=== PATIENT | female | born 1985 | race Caucasian/White ===

== ENCOUNTER → 2017-02-25 | Outpatient (REF) | payer OTHER | LOC: M LAB REF 08:13 | PROVIDERS: ATTEND Physician Assistant | DX: R30.0 Dysuria (principal) ==

== ENCOUNTER 2019-01-04 16:30 | Emergency (ER) | payer OTHER ==
[~2019-01-04] VITALS: Ht 160 cm; Wt 55.5 kg
[2019-01-04 17:11] LABS: BASO # 0.1 10^3/uL (0.0-0.2); BASO % 0.6 % (0.0-1.0); EOS # 0.4 10^3/uL (0.0-0.50); HEMATOCRIT 30.6 % (36.0-47.0); HEMOGLOBIN 9.5 g/dl (12.0-15.5); LYMPH # 3.4 10^3/uL (1.5-4.5); LYMPH % 35.6 % (24.0-44.0); MEAN CORPUSCULAR HEMOGLOBIN 19.4 pg (27.0-33.0); MEAN CORPUSCULAR VOLUME 62.4 fl (80.0-96.0); MONO # 0.8 10^3/uL (0.0-0.8); MONO % 8.7 % (0.0-5.0); NEUTROPHILS # 4.8 10^3/uL (1.8-7.7); NEUTROPHILS % 50.8 % (36.0-66.0); PLATELET COUNT, AUTOMATED 225 10^3/uL (150-450); WHITE BLOOD COUNT 9.4 10^3/uL (4.0-10.0)
[2019-01-04 17:53] LABS: APPEARANCE, URINE CLEAR (CLEAR); BACTERIA, URINE AUTO NEGATIVE (NEGATIVE); BILIRUBIN, URINE AUTO NEGATIVE (NEGATIVE); BLOOD, URINE BLOOD 2+ (NEGATIVE); COLOR, URINE YELLOW (YELLOW); GLUCOSE, URINE (UA) AUTO NEGATIVE (NEGATIVE); KETONE, URINE AUTO NEGATIVE (NEGATIVE); LEUKOCYTE ESTERASE, URINE AUTO NEGATIVE (NEGATIVE); MUCUS, URINE SMALL (NEGATIVE); NITRITE, URINE AUTO NEGATIVE (NEGATIVE); PROTEIN, URINE AUTO NEGATIVE (NEGATIVE); RBC, URINE AUTO 142 /HPF (0-3); SPECIFIC GRAVITY URINE AUTO 1.027 (1.002-1.035); SQUAMOUS EPITHELIAL CELL UR AU 0 /HPF (0-6); WBC, URINE AUTO 1 /HPF (0-3)
[2019-01-04 18:10] LABS: BLOOD UREA NITROGEN 17 MG/DL (7-18); CALCIUM LEVEL 8.7 MG/DL (8.5-10.1); CARBON DIOXIDE LEVEL 27 MEQ/L (21-32); CHLORIDE LEVEL 106 MEQ/L (98-107); CREATININE FOR GFR 0.83 MG/DL (0.55-1.30); GLOMERULAR FILTRATION RATE > 60.0 (>60); GLUCOSE, FASTING 112 MG/DL (70-100); HCG, SERUM QUANTITATIVE 350 MIU/ML; POTASSIUM SERUM 3.9 MEQ/L (3.5-5.1); SODIUM LEVEL 141 MEQ/L (136-145)
--- NOTE | 2019-01-04 18:47 | REP ---
Clinical: with vaginal bleeding. Technique: Transabdominal and transvaginal first trimester obstetrical ultrasound with color Doppler evaluation. Findings: Heterogeneous anteverted uterus measures 8.7 x 3.7 x 5.5 cm. Endometrial complex measures 7.1 mm thickness and without decidual reaction or intrauterine . The bilateral ovaries are normal in appearance and vascularity without torsion. Right ovary measures 4.1 x 2.3 x 2.3 cm; RI 0.61. Left ovary measures 4.2 x 1.7 x 2.2 cm and includes 2.3 cm cyst possibly corpus luteum; RI 0.70. No pelvic fluid or adnexal mass lesion. Impression: Heterogeneous anteverted uterus without decidual reaction or intrauterine . Correlation with serial HCG levels and follow-up examination may be warranted. Differential diagnosis includes early , missed , and less likely ectopic . Electronically Signed by Eugenio Hughes MD 01/04/2019 06:38 P
[2019-01-04] MEDS ORDERED: RHOGAM 300 MCG (1500 IU) INJ (J2790) IM ONE (19:00)
[2019-01-04 20:14] VITALS: BP 115/61
== END 2019-01-04 20:33 | disposition home or self-care (01) ==
LOC: M ED 16:30
DX: O20.0 Threatened abortion (principal); Z3A.00 Weeks of gestation of pregnancy not specified; Z91.048 Other nonmedicinal substance allergy status; Z88.8 Allergy status to other drugs, medicaments and biological substances
CPT/HCPCS: 76801; 76817; 80048; 81001; 84702; 85025; 86850; 86901; 87086; 93976; 96372; 99283; J2790

== ENCOUNTER → 2019-01-07 | Outpatient (CLI) | payer OTHER | LOC: M LAB 08:35 | PROVIDERS: ATTEND Advanced Practice Midwife | DX: N93.8 Other specified abnormal uterine and vaginal bleeding (principal) ==

== ENCOUNTER → 2019-01-22 | Outpatient (CLI) | payer OTHER | LOC: M LAB 15:34 | PROVIDERS: ATTEND Advanced Practice Midwife | DX: O02.1 Missed abortion (principal) ==

== ENCOUNTER → 2019-01-22 | Outpatient (REF) | payer OTHER ==
[2019-01-29 14:08] LABS: HPV HYBRID CAPTURE II Positive (Negative)
== END ==
LOC: M LAB REF 17:39
PROVIDERS: ATTEND Advanced Practice Midwife
DX: R87.612 Low grade squamous intraepithelial lesion on cytologic smear of cervix (LGSIL) (principal)
CPT/HCPCS: 87624; G0123

== ENCOUNTER → 2019-04-02 | Outpatient (CLI) | payer OTHER ==
[2019-04-02 17:25] LABS: BASO # 0.1 10^3/uL (0.0-0.2); BASO % 0.5 % (0.0-1.0); EOS # 0.3 10^3/uL (0.0-0.50); EOS % 2.3 % (0.0-3.0); HEMATOCRIT 31.1 % (36.0-47.0); HEMOGLOBIN 9.8 g/dl (12.0-15.5); LYMPH # 2.6 10^3/uL (1.5-4.5); LYMPH % 23.1 % (24.0-44.0); MEAN CORPUSCULAR HEMOGLOBIN 19.6 pg (27.0-33.0); MEAN CORPUSCULAR HGB CONC 31.5 g/dl (32.0-36.5); MEAN CORPUSCULAR VOLUME 62.2 fl (80.0-96.0); MONO # 1.1 10^3/uL (0.0-0.8); MONO % 9.6 % (0.0-5.0); NEUTROPHILS # 7.2 10^3/uL (1.8-7.7); NEUTROPHILS % 63.9 % (36.0-66.0); PLATELET COUNT, AUTOMATED 206 10^3/uL (150-450); WHITE BLOOD COUNT 11.3 10^3/uL (4.0-10.0)
[2019-04-03 10:06] LABS: HEPATITIS C VIRUS ABY INDEX < 0.0 INDEX (<0.8); HIV 1&2 SCREEN CENTAUR NEGATIVE (NEGATIVE); RUBELLA IgG QUALITATIVE IMMUNE (IMMUNE)
[2019-04-03 13:05] LABS: CHLAMYDIA DNA AMPLIFICATION NEGATIVE (NEGATIVE); GC DNA AMPLIFICATION NEGATIVE (NEGATIVE)
== END ==
LOC: M SMT 14:08
PROVIDERS: ATTEND Advanced Practice Midwife
DX: Z34.81 Encounter for supervision of other normal pregnancy, first trimester (principal); Z3A.00 Weeks of gestation of pregnancy not specified

== ENCOUNTER → 2019-05-23 | Outpatient (REF) | payer OTHER | LOC: M LAB REF 14:05 | PROVIDERS: ATTEND Physician Assistant | DX: R30.0 Dysuria (principal) ==

== ENCOUNTER → 2019-06-12 | Outpatient (CLI) | payer BC ==
--- NOTE | 2019-06-13 10:30 | REP ---
Clinical: Anatomical evaluation. Comparison: None. Findings: Examination demonstrates a single live intrauterine in breech presentation. motion is identified by technologist. Placenta is noted anterior and low-lying and grade zero without evidence for placenta previa or abruption. Amniotic fluid volume is normal. Cervix measures 6.2 cm in length and appears closed. No evidence for nuchal cord. Gestational age by LMP 18 weeks 4 days with KVNG 11/09/2019 . Gestational age by current measurements 18 weeks 1 day with KVNG 11/12/2019 . FHR equals 154 beats per minute. BPD 4.1 cm 18 weeks 3 days HC 15.3 cm 18 weeks 2 days AC 12.5 cm 18 weeks 1 day FL 2.6 cm 18 weeks 0 days HL 2.6 cm 18 weeks 1 day HC/AC ratio 1.22 Estimated weight 223 grams ( 28th percentile). Anatomical assessment demonstrates normal structures including cranium, cavum, cerebellum/posterior fossa, facial features, lungs, diaphragm, stomach, cord insertion/three-vessel cord, kidneys/bladder, and upper extremities. Small bilateral choroid plexus cyst noted. Limited evaluation of the heart/ventricular outflow tracts, spine and lower extremities. Impression: 1. Single live intrauterine in breech presentation demonstrating appropriate interval growth. 2. Low-lying placenta 14 mm from the closed internal os warrants followup. 3. Limited anatomical assessment. Electronically Signed by Eugenio Hughes MD 06/13/2019 10:21 A
== END ==
LOC: M RAD 15:50
PROVIDERS: ATTEND Advanced Practice Midwife
DX: Z34.81 Encounter for supervision of other normal pregnancy, first trimester (principal)

== ENCOUNTER → 2019-06-25 | Outpatient (REF) | payer BC | LOC: M LAB REF 16:56 | PROVIDERS: ATTEND Advanced Practice Midwife | DX: Z34.81 Encounter for supervision of other normal pregnancy, first trimester (principal) ==

== ENCOUNTER → 2019-07-08 | Outpatient (CLI) | payer BC ==
--- NOTE | 2019-07-08 18:23 | REP ---
OB ULTRASOUND: Real-time sonographic evaluation of the gravid uterus is performed utilizing transabdominal and endovaginal technique. There is a single living intrauterine gestation. The estimated gestational age is 22 weeks 2 days, EDC 11/09/2019. Today's measurements indicate appropriate growth. BPD 53 mm = 22 weeks 0 days, at the 41st percentile. HC 186 mm = 21 weeks 0 days, at the 10th percentile. AC 171 mm = 22 weeks 1 day, at the 45th percentile. Femur length 40 mm = 22 weeks 5 days, at the 60th percentile. HC/AC ratio 1.09 within normal range. Estimated weight 485 grams at the 42nd percentile. Cervix is closed and measures 3.9 cm in length. heart rate 141 beats per minute. SEEN/GROSSLY UNREMARKABLE Lateral ventricles Yes Posterior fossa Yes Upper lip Yes Four-chamber heart Yes LVOT Yes RVOT Yes Stomach Yes Cord insertion Yes Three vessel cord Yes Kidneys Yes Bladder Yes Spine Yes position: Variable. Placenta: Anterior and grade 0 with no previa or abruption. Amniotic fluid: Within normal limits. Electronically Signed by Christiano Acharya MD 07/09/2019 11:59 A
== END ==
LOC: M RAD 15:56
PROVIDERS: ATTEND Advanced Practice Midwife
DX: Z34.81 Encounter for supervision of other normal pregnancy, first trimester (principal)

== ENCOUNTER → 2019-08-19 | Outpatient (CLI) | payer BC ==
[2019-08-19 14:47] LABS: HEMATOCRIT 29.4 % (36.0-47.0); HEMOGLOBIN 8.9 g/dl (12.0-15.5); MEAN CORPUSCULAR HEMOGLOBIN 20.1 pg (27.0-33.0); MEAN CORPUSCULAR HGB CONC 30.3 g/dl (32.0-36.5); MEAN CORPUSCULAR VOLUME 66.5 fl (80.0-96.0); PLATELET COUNT, AUTOMATED 208 10^3/uL (150-450); RED BLOOD COUNT 4.42 10^6/uL (4.00-5.40); WHITE BLOOD COUNT 11.4 10^3/uL (4.0-10.0)
== END ==
LOC: M PLALAB 09:34
PROVIDERS: ATTEND Advanced Practice Midwife
DX: Z34.82 Encounter for supervision of other normal pregnancy, second trimester (principal)

== ENCOUNTER → 2019-10-01 | Outpatient (CLI) | payer BC ==
[2019-10-01 12:12] LABS: HEMATOCRIT 30.1 % (36.0-47.0); HEMOGLOBIN 9.1 g/dl (12.0-15.5); MEAN CORPUSCULAR HEMOGLOBIN 19.6 pg (27.0-33.0); MEAN CORPUSCULAR HGB CONC 30.2 g/dl (32.0-36.5); MEAN CORPUSCULAR VOLUME 64.7 fl (80.0-96.0); PLATELET COUNT, AUTOMATED 205 10^3/uL (150-450); RED BLOOD COUNT 4.65 10^6/uL (4.00-5.40); WHITE BLOOD COUNT 10.5 10^3/uL (4.0-10.0)
== END ==
LOC: M PLALAB 09:17
PROVIDERS: ATTEND Advanced Practice Midwife
DX: O99.013 Anemia complicating pregnancy, third trimester (principal); D56.3 Thalassemia minor; Z3A.00 Weeks of gestation of pregnancy not specified

== ENCOUNTER → 2019-10-07 | Outpatient (CLI) | payer BC ==
--- NOTE | 2019-10-07 11:24 | REP ---
OB ULTRASOUND: Real-time sonographic evaluation of the gravid uterus is performed. There is a single intrauterine gestation with an estimated gestational age 35 weeks 2 days, EDC 11/09/2019. Today's measurements indicate appropriate growth. Biometry and Growth: BPD 86 mm = 34 weeks 4 days, 40th percentile. HC 311 mm = 34 weeks 5 days 42nd percentile AC 316 mm = 35 weeks 4 days, 54th percentile FL 67 mm = 34 weeks 4 days, 40th percentile HC/AC ratio 0.98 within normal range. Estimated weight 2597 grams, 45th percentile. SEEN/GROSSLY UNREMARKABLE Lateral ventricles Yes Posterior fossa Yes Upper lip Yes Four-chamber heart Yes LVOT Yes RVOT Yes Stomach Yes Cord insertion Yes Three vessel cord Yes Kidneys Yes Bladder Yes Spine Yes Cervical length: Closed and measures 4.1 cm in length. heart rate: 163 beats per minute. position: Vertex. Placenta: Anterior and grade 1 with no previa or abruption. Amniotic fluid: Within normal limits, MYRANDA 10.6 within normal range of 7.8 to 24.9. S/D ratio 2.32 within the normal range of 2.0 to 3.0. RI: 0.57 below normal range of 0.59 to 0.75. IMPRESSION: Appropriate growth. Electronically Signed by Christiano Acharya MD 10/07/2019 01:28 P
== END ==
LOC: M RAD 10:02
PROVIDERS: ATTEND Advanced Practice Midwife
DX: O26.843 Uterine size-date discrepancy, third trimester (principal)

== ENCOUNTER → 2019-10-11 | Outpatient (REF) | payer BC | LOC: M SFHCWAGY 18:33 | PROVIDERS: ATTEND Advanced Practice Midwife | DX: Z34.93 Encounter for supervision of normal pregnancy, unspecified, third trimester (principal) ==

== ENCOUNTER 2019-11-15 22:27 | Inpatient (IN) | payer BC ==
[~2019-11-15] VITALS: Ht 160 cm; Wt 90.2 kg
[2019-11-15] MEDS ORDERED: LACTATED RINGER'S 1000 ML IV STA (22:48)
--- NOTE | 2019-11-15 23:07 | HPEPDOC ---
Obstetrical History & Physical General Date of Admission November 15, 2019 History of Present Illness Chief Complaint: Contractions, term Information Provided By: Patient Age: 34 : 2 Term: 0 Pre-term: 0 Abortions: 1 Livin Care Care: Good Care Dating Final EDC: Nov 09, 2019 Final EDC by: LMP EGA at Admission: 40 (+6) Antepartum Course Height (inches): 63 Pre- weight (lbs.): 125 Admission Weight (lbs.): 199 Past Medical History Past Obstetrical History : Past Obstetrical History: [employer] History: Spontaneous , Abnormal Pap, Human papillomavirus(HPV), Herpes simplex virus(HSV), Other Past Medical History Medical History Thalassemia minor Surgical History: Other (LEEP, dental, arm) Social History Marital Status: Family situation: Spouse/partner home Psychosocial History: No pertinent psych hx * Smoker: non-smoker Alcohol: Denies Drugs: denies Abuse Violence Screening Have you been hit/kicked/slapp: No Have you been sexually assault: No Imunizations Tdap status: current Influenza Status: current Allergies Coded Allergies: Cat Dander (Verified Allergy, Unknown, 12/11/04) naproxen (Verified Adverse Reaction, Unknown, 01/04/19) gastric burning Medications No Active Prescriptions or Reported Meds Physical Examination Physical Examination GENERAL: Alert and oriented times three. Appears uncomfortable BREAST: . ABDOMEN: Gravid and non-tender to touch. FETUS: Is vertex (VTX) by sterile vaginal examination (SVE), fetus is vertex (VTX) by Curtis. HEART RATE: Regular rate and rhythm. LUNGS: Clear to auscultation (CTA). EXTREMITIES: No edema. No clonus. Deep tendon reflexes (DTRs) + 2. Pertinent Laboratoy Data Blood Type: O- RBC Antibody Screen: Positive (anti d) HIV: Negative Hepatitis B: Negative Hepatitis C: Negative Rapid Plasma Reagin: Nonreactive Rubella: Immune Chlamydia/Gonorrhea: Negative Group B Streptococcus: Negative Quad Screen Test: Declined Glucose Tolerance Test: 94 Anatomy Ultrasound Ultrasound Date: Jun 12, 2019 Placenta Location: Anterior Normal Anatomy: Yes Placenta Previa: No (low lying. TVUS cervix 6.2cm) Estimated Weight (grams): 223 Other Ultrasounds 04/02/19 dating 8wk gestation Steroid Therapy Steroid Therapy: No Vaginal Examination Dilation: 3 cm Effacement: 90% Station: -2 Cervical Consistency: Medium Cervical Position: Middle Presentation: Cephalic presentation Assessment Heart Rate (FHR): 135 Variability: Moderate Accelerations: Positive Decelerations: None Tocometer Contractions: Yes Frequency: regular, every 2-5 min. Duration: greater than 60 seconds Strength: palpated as moderate Assessment/Plan Assessment Daina is a 34-year-old (G)2 para (P)0-0-1-0 at 40+6 weeks by 8-week ultrasound. Presents to Labor and Delivery (L&D) laboring. Reports onset UC 1800, becoming stronger through the evening. Reports light bloody show. Denies LOF. Fetus is active. Plan Admit and orient. Multi [employer] Specialist and consent. Diet: clear. Group B Streptococcus (GBS) negative. Labs and intravenous (IV) per unit protocol. Counseled on Pitocin and induction of labor (IOL). Lactated Ringers (LR): Bolus 500 mL, then at 125 mL/hr. Considering epidural Anticipate normal spontaneous delivery (). C-S as appropriate. Qian Lopez CNM Nov 15, 2019 23:07
[2019-11-15 23:22] LABS: HEMATOCRIT 32.8 % (36.0-47.0); HEMOGLOBIN 9.9 g/dl (12.0-15.5); MEAN CORPUSCULAR HEMOGLOBIN 19.5 pg (27.0-33.0); MEAN CORPUSCULAR HGB CONC 30.2 g/dl (32.0-36.5); MEAN CORPUSCULAR VOLUME 64.6 fl (80.0-96.0); PLATELET COUNT, AUTOMATED 191 10^3/uL (150-450); RED BLOOD COUNT 5.08 10^6/uL (4.00-5.40); WHITE BLOOD COUNT 17.3 10^3/uL (4.0-10.0)
[2019-11-16] VITALS (16 sets, daily range): BP systolic 101–143; BP diastolic 58–77
[2019-11-16] MEDS ORDERED: PRENTAB9 PO
[2019-11-16] MEDS ORDERED: VALT1TAB PO
[2019-11-16] MEDS: LR 1,000 ML IV SCH ×2 (01:31→09:45)
[2019-11-16] MEDS ORDERED: BUTORPHANOL 2 MG/ML INJ (J0595) IV ONE (02:00)
[2019-11-16] MEDS ORDERED: PROMETHAZINE INJ 25 MG/ML VIAL (J2550) IM ONE (02:00)
[2019-11-16] MEDS ORDERED: OXYTOCIN DRIP 30 UNITS in IV 1 EA IV SCH ×2 (03:00→04:00)
[2019-11-16] MEDS ORDERED: OXYTOCIN 30 UNITS IN 0.9% NaCl 500ML IV BAG (J2590) As Ordered ONE (03:01)
--- NOTE | 2019-11-16 04:36 | IPNPDOC ---
Text Note Date of Service The patient was seen on 11/16/19. NOTE Progress Becoming increasingly uncomfortable UC Q 3-5 minutes, difficult to trace due to maternal activity FH 135, minimal variability due to recent stadol. Cat I prior to administration of medication SVE /-2, moderate bloody show Pt considering epidural VS,Fishbone, I+O VS, Fishbone, I+O Laboratory Tests 11/15/19 23:10 Vital Signs Date Time Temp Pulse Resp B/P (MAP) Pulse Ox O2 Delivery O2 Flow Rate FiO2 11/16/19 01:45 16 Qian Lopez CNM Nov 16, 2019 04:36
[2019-11-16] MEDS ORDERED: FENTANYL 2MCG/ML ROPIVACAINE 0.2% IN 0.9% NACL 100ML IVBAG As Ordered ONE (04:44)
[2019-11-16] MEDS ORDERED: REFRIGERATOR IV KEYS XX PRN (05:40)
[2019-11-16] MEDS ORDERED: ONDANSETRON 4MG/2ML VIAL (J2405) IV PRN (05:40)
[2019-11-16] MEDS ORDERED: LACTATED RINGER'S 1000 ML IV PRN (05:40)
[2019-11-16] MEDS ORDERED: diphenhydrAMINE 50MG/ML VIAL (J1200) IV PRN (05:40)
[2019-11-16] MEDS ORDERED: EPIDURAL/PCA KEYS XX PRN (05:40)
[2019-11-16] MEDS ORDERED: ePHEDrine SULFATE 25 MG/5 ML(5MG/ML) SYRINGE IV PRN (05:40)
[2019-11-16] MEDS ORDERED: EPIDURAL COMMENT XX SCH (05:40)
[2019-11-16] MEDS ORDERED: FENTANYL/ROPIVACAINE/NACL BAG 100 ML EPIDURAL SCH (05:40)
[2019-11-16] MEDS ORDERED: NALOXONE INJ 0.4 MG/1 ML VIAL (J2310) IV PRN (05:40)
--- NOTE | 2019-11-16 06:30 | IPNPDOC ---
Text Note Date of Service The patient was seen on 11/16/19. NOTE Progress Comfortable with epidural FH Cat I tracing UC 4-5 minutes x 60 seconds, moderate SVE 5-6/90/-2, BBOW with UC Pitocin started VS,Fishbone, I+O VS, Fishbone, I+O Laboratory Tests 11/15/19 23:10 Vital Signs Date Time Temp Pulse Resp B/P (MAP) Pulse Ox O2 Delivery O2 Flow Rate FiO2 11/16/19 01:45 16 Qian Lopez CNM Nov 16, 2019 06:30
[2019-11-16] MEDS ORDERED: IBUPROFEN 600 MG TAB PO PRN (12:45)
[2019-11-16] MEDS ORDERED: DOCUSATE SODIUM 100 MG CAP PO PRN (12:45)
[2019-11-16] MEDS ORDERED: ACETAMINOPHEN TAB 650MG DOSE (2X325MG) PO PRN (12:45)
[2019-11-16] MEDS ORDERED: RHOGAM 300 MCG (1500 IU) INJ (J2790) IM SCH (12:45)
[2019-11-16] MEDS ORDERED: METHYLERGONOVINE MALEATE 0.2 MG TAB PO PRN (12:45)
[2019-11-16] MEDS ORDERED: IBUPROFEN 800 MG TAB PO PRN (12:45)
[2019-11-16] MEDS ORDERED: DIBUCAINE 1% OINTMENT 30GM TOP PRN (12:45)
[2019-11-16] MEDS ORDERED: MEASLES,MUMPS,RUBELLA VACCINE INJ (MMR-II) (90707) SC SCH (12:45)
--- NOTE | 2019-11-16 12:51 | DN ---
DATE OF DELIVERY: 11/16/2019 PREDELIVERY DIAGNOSIS: 40 and 6/7 weeks gestation, labor. POSTDELIVERY DIAGNOSIS: Delivered. PROCEDURE: Spontaneous vaginal delivery. BANQUET HOUSEPERSON: Dr. Hayden Vera ANESTHESIA: Epidural. ESTIMATED BLOOD LOSS: 300 mL. FINDINGS: 7 pound 7 ounce female infant, scores 9 and 9. DELIVERY SUMMARY: After a 30 minute second stage, the patient spontaneously delivered a 7 pound 7 ounce female , scores 9 and 9 under epidural anesthesia. There was no nuchal cord. The shoulders delivered with ease. The was handed to the mother and cried. Cord was doubly clamped and cut. The placenta delivered spontaneously and appeared to be intact. The patient received intravenous (IV) Pitocin immediately after delivery of the placenta. Second degree perineal laceration was repaired under local anesthesia with #2-0 Vicryl in the usual fashion. Sponge and needle counts were correct.
[2019-11-16] MEDS ORDERED: OXYTOCIN DRIP 30 UNITS in IV 1 EA IV ONE (13:00)
[2019-11-16] MEDS ORDERED: LIDOCAINE 1% MDV 20ML VIAL INFIL ONE (13:00)
[2019-11-16] MEDS: ACETAMINOPHEN 500 MG TAB PO PRN ×2 (13:53→19:45)
[2019-11-16] MEDS ORDERED: SLF 3 ML SYR IV PRN (14:30)
[2019-11-17] MEDS: ACETAMINOPHEN 500 MG TAB PO PRN ×2 (01:50→08:16)
[2019-11-17] MEDS: SLF 3 ML SYR IV SCH ×3 (01:51→05:52)
[2019-11-17 06:12] VITALS: BP 127/60
[2019-11-17] MEDS ORDERED: PRENATAL VITAMINS CHEWABLE TABLET PO SCH (09:00)
[2019-11-17] MEDS ORDERED: IBUP80TA PO (16:08)
[2019-11-17] MEDS ORDERED: ACET-683 PO (16:08)
== END 2019-11-17 16:35 | disposition home or self-care (01) | DRG 560 ==
LOC: M LDO 22:27 → M LDI 22:53 → M OBS 11-16 14:14
PROVIDERS: ADMIT Advanced Practice Midwife; ATTEND Specialist
PROC: 10E0XZZ Delivery of Products of Conception, External Approach (ICD-10-PCS; principal; 2019-11-16)
PROC: 0KQM0ZZ Repair Perineum Muscle, Open Approach (ICD-10-PCS; 2019-11-16)
DX: O48.0 Post-term pregnancy (principal); O70.1 Second degree perineal laceration during delivery; Z3A.40 40 weeks gestation of pregnancy; Z37.0 Single live birth

== ENCOUNTER → 2020-05-26 | Outpatient (REF) | payer BC ==
[~2020-05-26] MED LIST: ACET-683 PO; IBUP80TA PO; PRENTAB9 PO; VALT1TAB PO
[2020-05-26 14:34] LABS: HEMATOCRIT 35.5 % (36.0-47.0); HEMOGLOBIN 10.8 g/dl (12.0-15.5); MEAN CORPUSCULAR HEMOGLOBIN 18.8 pg (27.0-33.0); MEAN CORPUSCULAR HGB CONC 30.4 g/dl (32.0-36.5); MEAN CORPUSCULAR VOLUME 61.7 fl (80.0-96.0); PLATELET COUNT, AUTOMATED 228 10^3/uL (150-450); RED BLOOD COUNT 5.75 10^6/uL (4.00-5.40); WHITE BLOOD COUNT 9.7 10^3/uL (4.0-10.0)
[2020-05-26 15:47] LABS: HEPATITIS C VIRUS ABY INDEX 0.1 INDEX (<0.8); HIV 1&2 SCREEN CENTAUR NEGATIVE (NEGATIVE)
== END ==
LOC: M PLALAB 10:19
PROVIDERS: ATTEND Advanced Practice Midwife
DX: Z34.91 Encounter for supervision of normal pregnancy, unspecified, first trimester (principal); Z12.4 Encounter for screening for malignant neoplasm of cervix

== ENCOUNTER 2020-07-22 14:57 | Day surgery (SDC) | payer BC ==
[~2020-07-22] VITALS: Ht 160 cm; Wt 62.6 kg
[2020-07-22] MEDS ORDERED: ceFAZolin SOD 2 GM in IV 1 EA IV ONE (15:30)
[2020-07-22 15:50] LABS: HEMATOCRIT 31.2 % (36.0-47.0); HEMOGLOBIN 9.5 g/dl (12.0-15.5); MEAN CORPUSCULAR HEMOGLOBIN 19.2 pg (27.0-33.0); MEAN CORPUSCULAR HGB CONC 30.4 g/dl (32.0-36.5); PLATELET COUNT, AUTOMATED 208 10^3/uL (150-450); RED BLOOD COUNT 4.95 10^6/uL (4.00-5.40); WHITE BLOOD COUNT 8.1 10^3/uL (4.0-10.0)
[2020-07-22] MEDS ORDERED: RHOGAM 300 MCG (1500 IU) INJ (J2790) IM ONE ×2 (16:00→18:30)
[2020-07-22] MEDS ORDERED: ROCURONIUM BROMIDE 50 MG/5 ML VIAL As Ordered ONE ×2 (16:39→16:43)
[2020-07-22] MEDS ORDERED: propofoL 200 MG/20 ML VIAL As Ordered ONE (16:39)
[2020-07-22] MEDS ORDERED: LIDOCAINE 2% 100MG/5ML SDV (FOR ANES.) As Ordered ONE (16:39)
[2020-07-22] MEDS ORDERED: fentaNYL 100 MCG/2 ML INJECTION (J3010) As Ordered ONE (16:40)
[2020-07-22] MEDS ORDERED: MIDAZOLAM INJ 2MG/2ML VIAL (J2250 PER 1MG) As Ordered ONE (16:40)
[2020-07-22] MEDS ORDERED: LIDOCAINE 1% SDV 30ML VIAL As Ordered ONE (16:43)
[2020-07-22] MEDS ORDERED: miSOPROStol 200 MCG TAB (S0191) As Ordered ONE (16:43)
[2020-07-22] MEDS ORDERED: METHYLERGONOVINE MALEATE 0.2 MG/ML VIAL (J2210) As Ordered ONE (16:43)
[2020-07-22] MEDS ORDERED: SILVER NITRATE APPLICATOR As Ordered ONE (16:43)
[2020-07-22] MEDS ORDERED: ACETAMINOPHEN 1000MG 100ML IV BTL (OFIRMEV) (J0131 PER 10MG) As Ordered ONE (17:17)
[2020-07-22] MEDS ORDERED: METOCLOPRAMIDE INJ 10MG/2ML VIAL (J2765 PER 1) As Ordered ONE (17:19)
[2020-07-22] MEDS ORDERED: SUGAMMADEX SODIUM 500 MG/5 ML VIAL (BRIDION) As Ordered ONE (17:19)
[2020-07-22] MEDS ORDERED: ONDANSETRON 4MG/2ML VIAL As Ordered ONE ×2 (17:19→18:16)
[2020-07-22] MEDS ORDERED: KETOROLAC 60MG 2ML VIAL As Ordered ONE (17:19)
--- NOTE | 2020-07-22 18:17 | ROOPDOC ---
[facility] Report Of Operation Report of Operation DATE OF PROCEDURE: 07/22/20 PREPROCEDURE DIAGNOSES: 12-13 weeks gestation, demise. POSTPROCEDURE DIAGNOSES: same. PROCEDURE: D+E+C under ultrasound guidance. SURGEON: Bar Echeverria MD ANESTHESIA: general via LMA. ESTIMATED BLOOD LOSS: Approximately 100 mL. COMPLICATIONS: none. Findings: 13 week size macerated fetus and placenta. PROCEDURE NOTE: The patient was taken to the operating room where LMA anesthesia was induced. She was prepped and draped in a sterile fashion in Lithotomy position. Transabdominal ultrasound was utilized throughout the procedure. Three laminaria and one sponge were removed. Cervical dilation was completed. A #12 mm suction curette was placed through the internal os. The suction device was activated and the curette was gently rotated until products of conception were noted coming through the suction tubing. Ring forceps were used to grasp tissue at the cervical os. Sharp curettage was performed. A normal endometrial stripe was visualized by ultrasound at the end of the procedure. Products of conception were examined, and noted to be complete. Good hemostasis. Sponge and instrument counts were correct. . BAR ECHEVERRIA MD Jul 22, 2020 18:17
[2020-07-22] MEDS ORDERED: ACETAMINOPHEN 500 MG TAB PO ONE (18:30)
[2020-07-22] MEDS ORDERED: fentaNYL 100 MCG/2 ML INJECTION (J3010) IV PRN (18:30)
[2020-07-22] MEDS ORDERED: ONDANSETRON 4MG/2ML VIAL IV PRN (18:30)
[2020-07-22] MEDS ORDERED: LR 1,000 ML IV SCH ×2 (18:30)
[2020-07-22] MEDS ORDERED: oxyCODONE 5MG TAB PO PRN (18:30)
[2020-07-22 19:28] VITALS: BP 99/50
[2020-07-23] MEDS ORDERED: ceFAZolin SOD 2 GM in IV 1 EA IV ONE (06:00)
[2020-07-23] MEDS ORDERED: RHOGAM 300 MCG (1500 IU) INJ (J2790) IM ONE (06:00)
== END 2020-07-22 19:28 | disposition home or self-care (01) ==
LOC: M SDC 14:57
PROVIDERS: ATTEND Specialist
DX: O02.1 Missed abortion (principal); D56.3 Thalassemia minor; N87.9 Dysplasia of cervix uteri, unspecified
CPT/HCPCS: 36415; 59820; 85027; 86850; 86900; 86901; 88305; J0131; J0690; J1885; J2250; J2765; J2790; J3010; U0002

== ENCOUNTER → 2020-08-21 | Outpatient (REF) | payer BC | LOC: M SFHCWAGY 17:16 | PROVIDERS: ATTEND Specialist | DX: N87.9 Dysplasia of cervix uteri, unspecified (principal) ==

== ENCOUNTER → 2020-09-22 | Outpatient (REF) | payer BC | LOC: M SFHCWAGY 09:41 | PROVIDERS: ATTEND Specialist | DX: R87.613 High grade squamous intraepithelial lesion on cytologic smear of cervix (HGSIL) (principal) ==

== ENCOUNTER → 2020-11-23 | Outpatient (REF) | payer BC ==
[2020-11-23 18:24] LABS: HEMATOCRIT 32.5 % (36.0-47.0); HEMOGLOBIN 9.8 g/dl (12.0-15.5); MEAN CORPUSCULAR HEMOGLOBIN 18.6 pg (27.0-33.0); MEAN CORPUSCULAR HGB CONC 30.2 g/dl (32.0-36.5); MEAN CORPUSCULAR VOLUME 61.6 fl (80.0-96.0); PLATELET COUNT, AUTOMATED 209 10^3/uL (150-450); RED BLOOD COUNT 5.28 10^6/uL (4.00-5.40); WHITE BLOOD COUNT 10.4 10^3/uL (4.0-10.0)
[2020-11-24 14:41] LABS: HEPATITIS C VIRUS ABY INDEX 0.2 INDEX (<0.8)
== END ==
LOC: M PLALAB 14:42
PROVIDERS: ATTEND Specialist
DX: Z36.89 Encounter for other specified antenatal screening (principal); Z34.81 Encounter for supervision of other normal pregnancy, first trimester

== ENCOUNTER → 2020-12-23 | Outpatient (REF) | payer BC | LOC: M PLALAB 16:36 | PROVIDERS: ATTEND Obstetrics & Gynecology | DX: O99.011 Anemia complicating pregnancy, first trimester (principal) ==

== ENCOUNTER → 2021-02-17 | Outpatient (CLI) | payer BC ==
--- NOTE | 2021-02-17 10:36 | REP ---
INDICATION: ANATOMY COMPARISON: None. TECHNIQUE: Transabdominal obstetrical ultrasound with color Doppler evaluation. FINDINGS: Examination demonstrates a single live intrauterine in breech presentation. motion is identified by technologist. Placenta is noted posterior and grade without evidence for placenta previa or abruption. Amniotic fluid volume is normal. Cervix measures 3.5 cm in length and appears closed.. Selected gestational age: 20 weeks 1 day with KVGN 07/06/2021. Gestational age by current measurements 20 weeks 0 days with KVNG 07/07/2021. FHR equals 144 beats per minute. Estimated weight 339 grams (49thpercentile). Anatomical assessment demonstrates normal structures including cranium, choroid plexus, cavum, cerebellum/posterior fossa, facial features, lungs, four-chamber heart/ventricular outflow tracts, diaphragm, stomach, cord insertion/three-vessel cord, kidneys/bladder, spine, and extremities. IMPRESSION: Single live intrauterine in breech presentation demonstrating appropriate estimated weight. Anatomical assessment is complete and normal. <Electronically signed by Eugenio Hughes > 02/17/21 [id number]
--- NOTE | 2021-02-17 23:53 | REP ---
INDICATION: CERVICAL LENGTH DUE TO RECENT LEEP COMPARISON: 02/17/2021 TECHNIQUE: Transvaginal obstetrical ultrasound FINDINGS: Examination demonstrates a single live intrauterine . motion is identified by technologist. Cervix measures 3.7 cm in length and appears closed. IMPRESSION: Cervix measures 3.7 cm in length and appears closed. <Electronically signed by Eugenio Hughes > 02/17/21 [id number]
== END ==
LOC: M WHC 07:26
PROVIDERS: ATTEND Advanced Practice Midwife
DX: O99.012 Anemia complicating pregnancy, second trimester (principal)

== ENCOUNTER → 2021-04-09 | Outpatient (CLI) | payer BC ==
[2021-04-09 13:27] LABS: HEMATOCRIT 28.7 % (36.0-47.0); HEMOGLOBIN 8.7 g/dl (12.0-15.5); MEAN CORPUSCULAR HEMOGLOBIN 20.3 pg (27.0-33.0); MEAN CORPUSCULAR HGB CONC 30.3 g/dl (32.0-36.5); MEAN CORPUSCULAR VOLUME 66.9 fl (80.0-96.0); PLATELET COUNT, AUTOMATED 188 10^3/uL (150-450); RED BLOOD COUNT 4.29 10^6/uL (4.00-5.40); WHITE BLOOD COUNT 11.6 10^3/uL (4.0-10.0)
== END ==
LOC: M PLALAB 08:05
PROVIDERS: ATTEND Advanced Practice Midwife
DX: Z34.82 Encounter for supervision of other normal pregnancy, second trimester (principal); Z3A.24 24 weeks gestation of pregnancy
CPT/HCPCS: 36415; 82950; 85027; 86850; 86900; 86901; J2790

== ENCOUNTER → 2021-06-04 | Outpatient (CLI) | payer BC ==
[2021-06-04 15:34] LABS: HEMATOCRIT 29.4 % (36.0-47.0); MEAN CORPUSCULAR HEMOGLOBIN 20.4 pg (27.0-33.0); MEAN CORPUSCULAR HGB CONC 30.6 g/dl (32.0-36.5); MEAN CORPUSCULAR VOLUME 66.5 fl (80.0-96.0); PLATELET COUNT, AUTOMATED 190 10^3/uL (150-450); RED BLOOD COUNT 4.42 10^6/uL (4.00-5.40); WHITE BLOOD COUNT 12.9 10^3/uL (4.0-10.0)
== END ==
LOC: M PLALAB 10:01
PROVIDERS: ATTEND Advanced Practice Midwife
DX: O99.013 Anemia complicating pregnancy, third trimester (principal)

== ENCOUNTER → 2021-06-07 | Outpatient (REF) | payer BC | LOC: M SFHCWAGY 13:03 | PROVIDERS: ATTEND Advanced Practice Midwife | DX: Z34.93 Encounter for supervision of normal pregnancy, unspecified, third trimester (principal) ==

== ENCOUNTER 2021-07-13 09:05 | Inpatient (IN) | payer BC ==
[~2021-07-13] VITALS: Ht 160 cm; Wt 83.6 kg
[2021-07-13] VITALS (19 sets, daily range): BP systolic 92–135; BP diastolic 55–82
[2021-07-13] MEDS ORDERED: VALT500T PO (09:39)
[2021-07-13] MEDS ORDERED: HOME MED LIST COMPLETE! XX SCH (09:40)
[2021-07-13] MEDS ORDERED: LACTATED RINGER'S 1000 ML IV STA (10:08)
[2021-07-13] MEDS ORDERED: LIDOCAINE 1% MDV 20ML VIAL INFIL PRN (10:10)
[2021-07-13] MEDS ORDERED: METHYLERGONOVINE MALEATE 0.2 MG/ML VIAL (J2210) IM PRN (10:10)
[2021-07-13] MEDS ORDERED: OXYTOCIN DRIP 30 UNITS in IV 1 EA IV PRN (10:10)
[2021-07-13] MEDS ORDERED: CARBOPROST TROMETHAMINE 250 MCG/ML AMP IM PRN (10:10)
[2021-07-13] MEDS ORDERED: miSOPROStol 50MCG 1/2 TABLET PO ONE ×2 (10:10→16:15)
[2021-07-13] MEDS ORDERED: TRANEXAMIC ACID INJection 1,000 MG in NS 100 ML IV PRN (10:10)
[2021-07-13 10:41] LABS: HEMATOCRIT 32.5 % (36.0-47.0); MEAN CORPUSCULAR HEMOGLOBIN 20.5 pg (27.0-33.0); MEAN CORPUSCULAR HGB CONC 30.8 g/dl (32.0-36.5); MEAN CORPUSCULAR VOLUME 66.6 fl (80.0-96.0); PLATELET COUNT, AUTOMATED 168 10^3/uL (150-450); RED BLOOD COUNT 4.88 10^6/uL (4.00-5.40); WHITE BLOOD COUNT 8.8 10^3/uL (4.0-10.0)
[2021-07-13] MEDS ORDERED: OXYTOCIN DRIP 30 UNITS in IV 1 EA IV SCH (20:05)
[2021-07-13] MEDS: LR 1,000 ML IV SCH ×2 (20:48→22:15)
[2021-07-14] VITALS (13 sets, daily range): BP systolic 114–174; BP diastolic 59–100
[2021-07-14] MEDS ORDERED: FENTANYL 2MCG/ML ROPIVACAINE 0.2% IN 0.9% NACL 100ML IVBAG As Ordered ONE (01:32)
[2021-07-14] MEDS: LR 1,000 ML IV SCH (02:29)
[2021-07-14] MEDS: OXYTOCIN DRIP 30 UNITS in IV 1 EA IV PRN ×2 (02:29→03:11)
[2021-07-14] MEDS ORDERED: OXYTOCIN 30 UNITS IN 0.9% NaCl 500ML IV BAG (J2590) As Ordered ONE (02:55)
[2021-07-14] MEDS: OXYTOCIN DRIP 30 UNITS in IV 1 EA IV SCH ×2 (03:00→04:31)
[2021-07-14] MEDS ORDERED: MEASLES,MUMPS,RUBELLA VACCINE INJ (MMR-II) (90707) SC SCH (03:00)
[2021-07-14] MEDS ORDERED: LIDOCAINE 1% MDV 20ML VIAL INFIL ONE (03:00)
[2021-07-14] MEDS ORDERED: DIBUCAINE 1% OINTMENT 30GM TOP PRN (03:00)
[2021-07-14] MEDS ORDERED: RHOGAM 300 MCG (1500 IU) INJ (J2790) IM SCH (03:00)
[2021-07-14] MEDS ORDERED: METHYLERGONOVINE MALEATE 0.2 MG TAB PO PRN (03:00)
[2021-07-14] MEDS: IBUPROFEN 600MG TAB PO PRN ×2 (03:34→09:47)
[2021-07-14] MEDS ORDERED: PRENATAL VITAMINS CHEWABLE TABLET PO SCH (09:00)
[2021-07-14] MEDS: PRENATAL VITAMINS CHEWABLE TABLET PO SCH (09:47)
[2021-07-14] MEDS: DOCUSATE SODIUM 100MG CAPSULE PO PRN ×2 (09:47→19:57)
[2021-07-14] MEDS: ACETAMINOPHEN 500 MG TAB PO PRN (19:57)
[2021-07-15] MEDS: IBUPROFEN 600MG TAB PO PRN ×2 (02:10→09:33)
[2021-07-15 06:00] VITALS: BP 115/63
[2021-07-15] MEDS: ACETAMINOPHEN 500 MG TAB PO PRN (07:52)
[2021-07-15] MEDS: PRENATAL VITAMINS CHEWABLE TABLET PO SCH (07:52)
[2021-07-15 08:10] VITALS: BP 135/76
[2021-07-15] MEDS ORDERED: IBUP-1022 PO (10:02)
[2021-07-15] MEDS ORDERED: ACET-683 PO (10:02)
== END 2021-07-15 11:35 | disposition home or self-care (01) | DRG 560 ==
LOC: M LDI 09:05 → M OBS 07-14 05:07
PROVIDERS: ADMIT Obstetrics & Gynecology; ATTEND Obstetrics & Gynecology
PROC: 10907ZC Drainage of Amniotic Fluid, Therapeutic from Products of Conception, Via Natural or Artificial Opening (ICD-10-PCS; 2021-07-13)
PROC: 3E0P7GC Introduction of Other Therapeutic Substance into Female Reproductive, Via Natural or Artificial Opening (ICD-10-PCS; 2021-07-13)
PROC: 10E0XZZ Delivery of Products of Conception, External Approach (ICD-10-PCS; principal; 2021-07-14)
DX: O48.0 Post-term pregnancy (principal); O75.89 Other specified complications of labor and delivery; Z3A.41 41 weeks gestation of pregnancy; O70.1 Second degree perineal laceration during delivery; Z37.0 Single live birth

== ENCOUNTER → 2021-10-06 | Outpatient (REF) | payer BC ==
[~2021-10-06] MED LIST changes: +IBUP-1022 PO; +VALT500T PO
== END ==
LOC: M SFHCWAGY 13:01
PROVIDERS: ATTEND Obstetrics & Gynecology
DX: Z12.4 Encounter for screening for malignant neoplasm of cervix (principal)

== ENCOUNTER → 2025-07-09 | Outpatient (CLI) | payer BC, OTHER ==
[~2025-07-09] MED LIST changes: -IBUP-1022 PO; +IBUP600T42 PO
[2025-07-09 17:38] LABS: PLATELET COUNT, AUTOMATED 184 10^3/uL (150-450)
[2025-07-09 18:35] LABS: HIV 1&2 SCREEN NEGATIVE (NEGATIVE)
[2025-07-09 18:43] LABS: HEPATITIS C VIRUS ABY INDEX < 0.02 INDEX (<0.8)
[2025-07-09 20:52] LABS: Trichomonas vaginalis (AMP) NOT DETECTED (NEGATIVE)
[2025-07-09 21:16] LABS: GC DNA AMPLIFICATION NEGATIVE (NEGATIVE)
== END ==
LOC: M PLALAB 15:53
PROVIDERS: ATTEND Advanced Practice Midwife
DX: O09.521 Supervision of elderly multigravida, first trimester (principal); Z3A.00 Weeks of gestation of pregnancy not specified